=== PATIENT | female | born 1970 | race Caucasian/White ===

== ENCOUNTER 2016-10-26 08:46 | Day surgery (SDC) | payer BC ==
[~2016-10-26 08:46] MED LIST: Acetaminophen TAB* 325 MG PO PRN; Buffered Lidocaine 1% SYRIN* 3 ML/SYR SYRINGE INTRADERM ONE
[2016-10-26] MEDS ORDERED: Midazolam* 1 MG/ML 5 ML VIAL (5 MG) ONE (10:42)
[2016-10-26 12:13] VITALS: BP 131/84
--- NOTE | 2016-10-26 13:17 | OP ---
DATE OF OPERATION: 10/26/2016 - [facility] DATE OF : 1970. SURGEON: Jason Thomas M.D. PREOPERATIVE DIAGNOSIS: Cataract right eye. POSTOPERATIVE DIAGNOSIS: Cataract right eye. OPERATIVE PROCEDURE: Phacoemulsification right eye with IOL. DESCRIPTION OF PROCEDURE: The patient was brought to the operating room after being given 1/2% Alcaine with epinephrine drops in the preoperative area. The eye was prepped and draped in the usual sterile fashion. Sterile drape and eyelid speculum were placed. Again, topical 1/2% Alcaine with epinephrine was given. A paracentesis incision was made at the 9 o'clock position with the No.75 blade. Clear cornea incision 2.2 x 2.2-mm was created at the 12 o'clock position starting at the anterior limbus using the 2.2-mm keratome. The anterior chamber was irrigated with 0.4 mL of 1% non-preservative intracameral lidocaine and filled with DisCoVisc. A capsulorrhexis was completed using the cystotome and the Utrata forceps. Hydrodissection was performed with balanced salt solution. The lens nucleus was removed with the Phacoemulsification handpiece without incident. Cortex was removed with the irrigation-aspiration handpiece. The capsular bag was re-inflated using DisCoVisc and an [id number] 7.5 implant was inserted with the shooter, oriented to the 108 degree meridian. Horizontal reference awan made with the patient seated in the preoperative area. The irrigation-aspiration handpiece was used to remove all residual DisCoVisc. The eye was refilled with balanced salt solution and the wound checked and found to be watertight. Topical Maxitrol drops were given. [id number]/[facility] #: [id number] [facility] HEALTH SYSTEMNathaniel
[2016-10-26] MEDS ORDERED: Lidocaine 1% MPF* 2 ML VIAL ONE (14:13)
[2016-10-26] MEDS ORDERED: Povidone Iodine 5% OPTH* 30 ML BTL ONE (14:13)
[2016-10-26] MEDS ORDERED: Cyclopentolate 1% OPTH.SOL* 2 ML BTL ONE (14:13)
[2016-10-26] MEDS ORDERED: acetaZOLAMIDE TAB* 250 MG ONE (14:13)
[2016-10-26] MEDS ORDERED: Proparacaine 0.5% OPHTH.SOL* 15 ML BTL ONE (14:13)
[2016-10-26] MEDS ORDERED: Flurbiprofen 0.03% OPTH.SOL* 2.5 ML BTL ONE (14:13)
[2016-10-26] MEDS ORDERED: Phenylephrine 2.5% OPTH.SOL* 2 ML BTL ONE (14:13)
[2016-10-26] MEDS ORDERED: Neomycin/Polymy/Dex OPTH.SUSP* MAXITROL 0.1% 5 ML ONE (14:13)
[2016-10-26] MEDS ORDERED: Lidocaine 2% EPI 1:200000 MPF* 20 ML VIAL ONE (14:13)
== END 2016-10-26 12:02 | disposition home or self-care (01) ==
LOC: OREAST 08:46
PROVIDERS: ATTEND Specialist
DX: H25.811 Combined forms of age-related cataract, right eye (principal); H47.322 Drusen of optic disc, left eye; J45.909 Unspecified asthma, uncomplicated
CPT/HCPCS: A9270-GY; J2250; V2787

== ENCOUNTER 2016-11-12 09:40 | Emergency (ER) | payer BC ==
[2016-11-12 10:08] VITALS: BP 128/79
--- NOTE | 2016-11-12 10:28 | UC ---
UC General HPI - HPI Summary HPI Summary: Patient woke up with the side of her face feeling full and with pressure. she has a hx of an "elevated left optic nerve" which she is being followed by Dr Thomas. this fullness feeling is new. Over the past few weeks she has also had a dull pain in the left quadricept for the past few weeks that is getting tighter and the pain is present all the time now. - History of Current Complaint Chief Complaint: UCLowerExtremity Stated Complaint: LEFT LEG-SHOCKS & NUMBNESS Time Seen by Provider: 11/12/16 10:10 Hx Obtained From: Patient Onset/Duration: Gradual Onset, Lasting Weeks Timing: Constant Onset Severity: Moderate Current Severity: Severe Pain Location at: left Quad and sinuses - Allergy/Home Medications Allergies/Adverse Reactions: Allergies Allergy/AdvReac Type Severity Reaction Status Date / Time environmental Allergy Runny Nose Uncoded 11/12/16 10:08 PMH/Surg Hx/FS Hx/Imm Hx Previously Healthy: Yes Endocrine History Of: Denies: Diabetes Cardiovascular History Of: Denies: Hypertension, Pacemaker/ICD Respiratory History Of: Reports: Asthma - HASN'T HAD A PROBLEM IN A COUPLE OF YEARS GI/ History Of: Denies: Renal Disease Psychological History Of: Reports: Anxiety - ON MEDICATION FOR, Depression - ON MEDICATION FOR - Surgical History Surgical History: Yes Surgery Procedure, Year, and Place: c-sections X 2. PARTIAL COLECTOMY 10/2014 - Family History Known Family History: Positive: Hypertension - Social History Alcohol Use: Weekly Alcohol Amount: "a couple [drinks] ... a couple times a week" Substance Use Type: None Smoking Status (MU): Never Smoked Tobacco - Immunization History Most Recent Influenza Vaccination: Not the season Review of Systems Constitutional: Negative Skin: Negative Eyes: Negative ENT: Negative, Other - sinus pressure Respiratory: Negative Cardiovascular: Negative Gastrointestinal: Negative Genitourinary: Negative Motor: Negative Neurovascular: Negative Musculoskeletal: Myalgia Neurological: Negative Psychological: Negative All Other Systems Reviewed And Are Negative: Yes Physical Exam Triage Information Reviewed: Yes Appearance: Well-Appearing, Well-Nourished, Pain Distress Vital Signs: Initial Vital Signs Temp 97.4 F 11/12/16 10:01 Pulse 62 11/12/16 10:01 Resp 16 11/12/16 10:01 BP 128/79 11/12/16 10:01 Pulse Ox 99 11/12/16 10:01 Vital Signs Reviewed: Yes Eye Exam: Normal Eyes: Positive: Conjunctiva Clear, Other: - PERRLA, EOMI, elevation of lids is equal bilaterally ENT Exam: Normal ENT: Positive: Hearing grossly normal, Pharynx normal, Pharyngeal erythema, Nasal congestion, Other: - right TM is dull and fluid noted behind TM Dental Exam: Normal Neck exam: Normal Neck: Positive: Supple, Nontender, No Lymphadenopathy Respiratory Exam: Normal Respiratory: Positive: Chest non-tender, Lungs clear, Normal breath sounds Cardiovascular Exam: Normal Cardiovascular: Positive: RRR, No Murmur, Pulses Normal Abdominal Exam: Normal Abdomen Description: Positive: Nontender, No Organomegaly, Soft Bowel Sounds: Positive: Present Musculoskeletal Exam: Normal Musculoskeletal: Positive: Strength Intact, No Edema, ROM Limited @ - in hip ext and knee flx Neurological Exam: Normal Neurological: Positive: Alert, Muscle Tone Normal, Other: - [employer] strength is equal, gait is steady and all extremities move without difficulty, No facial droop, Cranial nerves intact Psychological Exam: Normal Psychological: Positive: Age Appropriate Behavior Skin Exam: Normal Course/Dx - Course Course Of Treatment: hx obtained, exam performed, meds reviewed, treated for sinus congestion and muscle spasm of the left quad, educated on heat and strething and warning signs of when to seek further treatment - Differential Dx - Multi-Symptom Provider Diagnoses: serous otitis media right. muscle spasm Discharge - Discharge Plan Condition: Stable Disposition: HOME Patient Education Materials: Serous Otitis Media (ED), Muscle Spasm (ED) Additional Instructions: 1. Take the medication as prescribed. 2. Increase fluid intake 3. heat and stretch the front of the thighs 4. things to follow up with: increased pressure behind your eye, any loss of function or movment in the face or extremities. anything that is concerning to you.
== END 2016-11-12 10:43 | disposition home or self-care (01) ==
LOC: UCCORT 09:40
DX: H65.91 Unspecified nonsuppurative otitis media, right ear (principal); M62.838 Other muscle spasm
CPT/HCPCS: 99212; G0463

== ENCOUNTER 2017-03-28 15:05 | Emergency (ER) | payer BC ==
[2017-03-28 15:22] VITALS: BP 123/81
--- NOTE | 2017-03-28 16:39 | UC ---
Skin Complaint HPI - HPI Summary HPI Summary: 46 year old female with no PMH no medications, with rash, skin breakdown on lower abdomen near scar x several days. + fever, chills (100) over past 2-3 days as well, n s/s of cold, flu type symptoms. + working out more frequently lately. - History of Current Complaint Hx Obtained From: Patient Hx Last Menstrual Period: n/a Onset/Duration: Sudden Onset, Lasting Days Timing: Constant Onset Severity: Mild Current Severity: Mild <Constance Briones - Last Filed: 03/28/17 16:33> <Lisa Wood - Last Filed: 03/28/17 16:53> - History of Current Complaint Chief Complaint: UCSkin Time Seen by Provider: 03/28/17 16:23 Stated Complaint: SKIN COMPLAINT - Allergy/Home Medications Allergies/Adverse Reactions: Allergies Allergy/AdvReac Type Severity Reaction Status Date / Time environmental Allergy Runny Nose Uncoded 03/28/17 15:22 Review of Systems Constitutional: Fever - 100, Chills, Fatigue Skin: Other - no drainage, + redness, + pain abdomen Gastrointestinal: Abdominal Pain Is Patient Immunocompromised?: No All Other Systems Reviewed And Are Negative: Yes <Constance Briones - Last Filed: 03/28/17 16:33> PMH/Surg Hx/FS Hx/Imm Hx Previously Healthy: Yes - Surgical History Surgical History: Yes Surgery Procedure, Year, and Place: c-sections X 2. PARTIAL COLECTOMY 10/2014 - Family History Known Family History: Positive: Hypertension - Social History Alcohol Use: Occasionally Alcohol Amount: "a couple [drinks] ... a couple times a week" Substance Use Type: None Smoking Status (MU): Never Smoked Tobacco - Immunization History Most Recent Influenza Vaccination: no 2016 <Constance Briones - Last Filed: 03/28/17 16:33> Physical Exam Triage Information Reviewed: Yes Appearance: Well-Appearing, No Pain Distress, Well-Nourished Vital Signs: Initial Vital Signs Temp 98 F 03/28/17 15:16 Pulse 60 03/28/17 15:16 Resp 15 03/28/17 15:16 BP 123/81 03/28/17 15:16 Pulse Ox 98 03/28/17 15:16 Eyes: Positive: Conjunctiva Clear Abdomen Description: Positive: Nontender, No Organomegaly, Soft, Other: - over R scar ~4cm linear line of macerated skin, not full thickness, + minimal erythema over line, no extending erythema, no abdominal redness, non- tender throughout abdomen, mild tenderness with palpation over line, no satelite lesions.. Negative: Distended, Guarding, McBurney's Point Tenderness, Peritoneal Signs Musculoskeletal Exam: Normal Neurological: Positive: Alert Skin: Positive: breakdown - around scar right sided <Constance Briones - Last Filed: 03/28/17 16:33> Vital Signs: Initial Vital Signs Temp 98 F 03/28/17 15:16 Pulse 60 03/28/17 15:16 Resp 15 03/28/17 15:16 BP 123/81 03/28/17 15:16 Pulse Ox 98 03/28/17 15:16 <Lisa Wood - Last Filed: 03/28/17 16:53> Course/Dx - Course Course Of Treatment: macerated along scar, antibiotic topical w anti- fungal applied three times daily, educated to dry area, wash 3x's w water until healed, encouraged powder, drying region after increased sweating. - Diagnoses Provider Diagnoses: skin maceration, abdomen. <Constance Briones - Last Filed: 03/28/17 16:33> Discharge <Constance Briones - Last Filed: 03/28/17 16:33> <Lisa Wood - Last Filed: 03/28/17 16:53> - Discharge Plan Condition: Good Disposition: HOME Prescriptions: Miconazole Nitrate (Topical) [Lotrimin AF Powder] 2 % TOPICAL TID #1 bottle Mupirocin 2% OINT* [Bactroban 2 % Oint*] 1 applic TOPICAL TID #1 tube Patient Education Materials: Laceration (ED) Referrals: Janice Cruz MD [Primary Care Provider] - Additional Instructions: Macerated Skin on Abdomen - Keep area clean and dry - Apply powder and antibiotic ointment 3 times daily - return for worsening symptoms. Attestation Statement User Type: Provider - I was available for consult. This patient was seen by the TIA. The patient was not presented to, seen by, or examined by me. -Ljj <Lisa Wood - Last Filed: 03/28/17 16:53>
== END 2017-03-28 16:48 | disposition home or self-care (01) ==
LOC: UCCORT 15:05
DX: L98.9 Disorder of the skin and subcutaneous tissue, unspecified (principal)
CPT/HCPCS: 99212; G0463